=== PATIENT | female | born 1960 | race Caucasian/White ===

== ENCOUNTER 2019-06-29 05:49 | Inpatient (IN) | payer OTHER ==
[2019-06-26 09:45] VITALS: BMI 24.0
[2019-06-29] MEDS ORDERED: Thrombin 5000 UNITS/5 ML VIAL ONE (06:32)
[2019-06-29] MEDS ORDERED: Bacitracin Zinc Ointment 30 gm TUBE ONE (06:32)
[2019-06-29] MEDS ORDERED: Sodium Chloride 0.9% 10 ML ONE (06:32)
[2019-06-29] MEDS ORDERED: ceFAZolin Sodium (SDC) 2 GM/100 ML BAG ONE (06:38)
[2019-06-29 06:40] LABS: #Basophils 0.1 thou/uL (0.0-0.2); #Eosinphils 0.2 thou/uL (0.0-0.7); #Lymphocytes 2.4 thou/uL (1.20-3.40); #Monocytes 0.4 thou/uL (0.11-0.59); #Neutrophils 2.8 thou/uL (1.40-6.50); %Basophils 1.4 % (0.0-1.0); %Eosinophils 3.7 % (0.0-10.0); %Monocytes 6.7 % (0.0-10.0); %Neutrophils 47.3 % (42.0-75.0); Mean Corpuscular HGB CONC 32.5 g/dL (32.0-36.0); Mean Corpuscular Hemoglobin 30.8 pg (27.0-31.0); Mean Corpuscular Volume 94.9 fL (78.0-98.0); Mean Platelet Volume 7.1 fL (7.4-10.4); Platelet Count 247 thou/uL (130-400); RBC Distribution Width 11.5 % (11.5-14.5); Red Blood Cell (RBC) Count 4.21 mill/uL (4.20-5.40); White Blood Cell (WBC) Count 5.9 thou/uL (4.8-10.8)
[2019-06-29] MEDS ORDERED: Fentanyl 100 MCG/2 ML VIAL ONE ×3 (06:48→09:34)
[2019-06-29 07:00] LABS: Anion Gap 11 mmol/L (10-20); BUN (Urea Nitrogen) 29 mg/dL (9.8-20.1); Calc. Creatinine Clearance 86 mL/min (70-130); Calcium 9.2 mg/dL (7.8-10.44); Carbon Dioxide 27 mmol/L (22-29); Chloride 108 mmol/L (98-107); Estimated GFR-MDRD 82; Glucose 89 mg/dL (70-105); Potassium 3.9 mmol/L (3.5-5.1); Sodium 142 mmol/L (136-145)
[2019-06-29] MEDS ORDERED: Ondansetron PF 4 MG/2 ML Vial ONE ×2 (08:03→12:02)
[2019-06-29] MEDS ORDERED: Meperidine HCl/PF 25 MG/ML VIAL ONE (08:47)
--- NOTE | 2019-06-29 10:40 | OP ---
DATE OF PROCEDURE: 06/29/2019 ASSISTANT [employer] DIRECTOR: Dean Parker PA-C PROCEDURES PERFORMED: Right L5 foraminotomy, L5-S1 fusion, pedicle screw instrumentation, demineralized bone matrix, local morselized autograft. DESCRIPTION OF PROCEDURE: The patient was brought to the operating room and intubated. She was rolled in a prone position on gel-filled chest rolls. An incision was made exposing L5 and S1 and her level was confirmed by x-ray. We performed a right L5-S1 facetectomy and completely decompressed the right L5 nerve root. We then placed pedicle screws at right L5 and right S1 using lateral fluoroscopic guidance. The getachew was secured between the screws. Distraction was applied and then nuts were attached and final tightened. The wound was then extensively irrigated and MAC hemostasis was secured. A combination of demineralized bone matrix and local morselized autograft was laid over the left lamina and posterolateral surfaces for the purpose of arthrodesis. Vancomycin powder was applied and the wound was then closed in anatomic layers. Job ID: [id number]
[2019-06-29] MEDS ORDERED: tiZANidine HCl 4 MG TAB ONE (11:11)
[2019-06-29] MEDS ORDERED: HYDROcodone/Acetaminophen 10/325 mg Tablet ONE (11:44)
[2019-06-29] MEDS ORDERED: PROPOFOL 200 MG/20 ML VIAL ONE (12:02)
[2019-06-29] MEDS ORDERED: Ketorolac Tromethamine 30 MG/ML VIAL ONE (12:02)
[2019-06-29] MEDS ORDERED: diphenhydrAMINE 50 MG/ML VIAL ONE (12:02)
[2019-06-29] MEDS ORDERED: Lidocaine 2% PF 5 ML VIAL ONE (12:02)
[2019-06-29] MEDS ORDERED: Dexamethasone 20 MG/5 ML VIAL ONE (12:02)
[2019-06-29] MEDS ORDERED: Glycopyrrolate 0.2 MG/ML 5 ML SYRINGE ONE (12:02)
[2019-06-29] MEDS ORDERED: Rocuronium Bromide 10 MG/ML (10ML VIAL) ONE (12:02)
--- NOTE | 2019-06-29 15:17 | EKG ---
Test Reason : PREOP Blood Pressure : / mmHG Vent. Rate : 053 BPM Atrial Rate : 053 BPM P-R Int : 162 ms QRS Dur : 082 ms QT Int : 438 ms P-R-T Axes : 045 054 029 degrees QTc Int : 410 ms Sinus bradycardia Otherwise normal ECG No previous ECGs available Confirmed by EBONI CARLIN, DR. Roman ([id number]) on 06/29/2019 3:17:05 PM Referred By: ÓSCAR Confirmed By:DR. Abel LYN MD
== END 2019-06-29 12:18 | disposition home or self-care (01) | DRG 460 ==
LOC: SURG A 05:49
PROVIDERS: ADMIT Neurological Surgery; ATTEND Neurological Surgery
PROC: 0SG3071 Fusion of Lumbosacral Joint with Autologous Tissue Substitute, Posterior Approach, Posterior Column, Open Approach (ICD-10-PCS; principal; 2019-06-29)
DX: M43.16 Spondylolisthesis, lumbar region (principal); Z98.42 Cataract extraction status, left eye; Z90.710 Acquired absence of both cervix and uterus; Z98.84 Bariatric surgery status; Z98.51 Tubal ligation status
CPT/HCPCS: 76000; 80048; 85025; 93005; 93010; C1713; C1768; J0131; J0690; J2175; J2405; J3010; J3370; J3490

== ENCOUNTER 2019-07-15 10:41 | Outpatient (CLI) | payer OTHER ==
--- NOTE | 2019-07-15 13:27 | RAD ---
LUMBAR SPINE 2 VIEWS: Date: 07/15/19 COMPARISON: None. HISTORY: Re-evaluate lumbar spine following surgery. FINDINGS: No prior imaging is available. There is anterolisthesis of L5 on S1 measuring 1.7. There is a right-sided pedicle screw present at L 5 and S1 with a vertically oriented interlocking getachew. No evidence for hardware failure. Gastric sutur e line suspected in left upper quadrant. There is disc space narrowing with degenerative end plate change at T10-11 and T11-12. No acute fract ure. IMPRESSION: Anterolisthesis at the lumbosacral junction with right-sided posterior fusion hardware demonstrating no evidence for failure. POS: TPC
== END 2019-07-15 10:42 | disposition home or self-care (01) ==
LOC: TBSIIMAG 10:41
PROVIDERS: ATTEND Neurological Surgery
DX: M43.16 Spondylolisthesis, lumbar region (principal); M43.17 Spondylolisthesis, lumbosacral region; Z98.1 Arthrodesis status
CPT/HCPCS: 72100

== ENCOUNTER 2019-08-18 13:58 | Outpatient (CLI) | payer OTHER ==
--- NOTE | 2019-08-18 14:16 | RAD ---
LUMBAR SPINE TWO VIEWS: HISTORY: Lumbar spondylolisthesis. COMPARISON: 07/15/2019 FINDINGS: Stable grade 2 anterolisthesis of L5 on S1. Mild levoscoliosis. IMPRESSION: 1. Stable grade 2 anterolisthesis of L5 on S1 with right-sided pedicle screw placement fixation pepe es. 2. Mild levoscoliosis. 3. No significant new process. POS: OFF
== END 2019-08-18 13:59 | disposition home or self-care (01) ==
LOC: TBSIIMAG 13:58
PROVIDERS: ATTEND Neurological Surgery
DX: M43.16 Spondylolisthesis, lumbar region (principal); M43.17 Spondylolisthesis, lumbosacral region; M41.9 Scoliosis, unspecified; Z98.890 Other specified postprocedural states
CPT/HCPCS: 72100

== ENCOUNTER 2020-10-04 12:26 | Outpatient (CLI) | payer OTHER ==
--- NOTE | 2020-10-04 13:19 | RAD ---
RADIOGRAPH LUMBAR SPINE 3 VIEWS: DATE: 10/04/2020 HISTORY: 60-year-old female with lumbar radiculopathy TECHNIQUE: 3 lateral views in flexion, extension, and neutral. FINDINGS: There are 5 lumbar-type vertebrae based on prior studies. There is multilevel moderate degenerative disc disease at lower thoracic spine. Vertebral body heights are maintained. Grade 2 anterolisthesis of L5 on S1 stabilized with unilateral right pedicle screws at L5 and S1. Severe disc space narrowing with endplate sclerosis at L5-S1. No interval change on the current neutral view compared to prior lateral view. No instability between flexion and extension. No high-grade disc space narrowing at any other level in the lumbar spine. IMPRESSION: 1) grade 2 spondylolisthesis at L5-S1 stabilized with unilateral right pedicle screws. 2.) Severe degenerative disc disease at L5-S1. 3) no evidence of instability
--- NOTE | 2020-10-04 14:10 | CT ---
CT OF THE LUMBAR SPINE WITHOUT CONTRAST: 10/04/20 INDICATION: 60-year-old female with back pain with right radicular symptoms. COMPARISON: Prior lumbar spine radiograph dating 08/18/19. FINDINGS: The right posterolateral spinal fusion construct of L5-S1 appears unchanged. Pedicle screws and inter connecting rods appear intact. Bilateral pars defect at L5 with grade I anterolisthesis is stable jacqueline earing. Advanced disc degenerative disease at L5-S1 is again seen. There is advanced disc degenerativ e disease at T12-L1 and T11-T12. There is sight levoscoliosis of the lumbar spine. At L5-S1, there is loss of disc space height in addition to spondylolisthesis inducing moderate to se phong right and severe left neural foraminal narrowing. At L4-5, there is no appreciable central canal or neural foraminal narrowing. At L3-4, there is no appreciable central canal narrowing. There is suggestion of at least mild left n eural foraminal narrowing due to facet hypertrophy and a mild broad based bulge. At L2-3, there is no appreciable central canal or neural foraminal narrowing. At L1-L2, there is no appreciable central canal or neural foraminal narrowing. At T12-L1, there is a mild broad based bulge but no appreciable central canal for neural foraminal na rrowing. IMPRESSION: 1. Postoperative lumbar spine. 2. Bilateral pars defects at L5 with grade I anterolisthesis. 3. Severe left and moderate to severe right neural foraminal narrowing at L5-S1 due to loss of d isc space height, grade I anterolisthesis and a broad based bulge. POS: ELVIS
== END 2020-10-04 12:27 | disposition home or self-care (01) ==
LOC: TBSIIMAG 12:26
PROVIDERS: ATTEND Neurological Surgery
DX: M54.16 Radiculopathy, lumbar region (principal); M43.16 Spondylolisthesis, lumbar region; M43.17 Spondylolisthesis, lumbosacral region; M48.07 Spinal stenosis, lumbosacral region; M47.27 Other spondylosis with radiculopathy, lumbosacral region; M51.37 Other intervertebral disc degeneration, lumbosacral region; Z98.1 Arthrodesis status
CPT/HCPCS: 72100; 72131